=== PATIENT | male | born 1995 | race Caucasian/White ===

== ENCOUNTER 2017-08-12 22:50 | Emergency (ER) | payer OTHER ==
[~2017-08-12] VITALS: Ht 177.8 cm; Wt 68.0 kg
[2017-08-12 22:52] VITALS: TEMP 36.4; Ht 177.8 cm; Wt 68.0 kg
--- NOTE | 2017-08-12 23:51 | EMERGENCY ROOM VISIT NOTE ---
History Report prepared by Tata: Sasha Farooq Under the Supervision of: Dr. Shavon Angel D.O. First contact with patient: 23:01 Chief Complaint: WEAKNESS Stated Complaint: FAINT History of Present Illness The patient is a 21 year old male who presents to the Emergency Room with complaints of constant dizziness beginning three hours ago. The patient reports he smoked marijuana three hours ago. After he smoked, he reports he started to have a difficult time breathing and felt dizzy. He vomited one time after smoking. The patient denies any abdominal pain or diarrhea. Per friends, the patient does not seem to have a difficult time breathing. Per friends, the patient seemed normal earlier today before he smoked the marijuana. Per friends , the patient called them and said he was not feeling well and asked them to take him to the hospital. This is the patient's second time smoking marijuana. He reports he did not have a reaction like this the first time he smoked marijuana. He denies any alcohol or other drug use tonight. Source of History: patient, friend Onset: three hours ago Position: other (generalized) Quality: other (dizziness) Timing: constant Associated Symptoms: + SOB, + vomiting, No abdominal pain, No diarrhea Review of Systems See HPI for pertinent positives & negatives. A total of 10 systems reviewed and were otherwise negative. Past Medical & Surgical Medical Problems: (1) No Known Active Medical Problems Family History Patient reports no known family medical history. Social History Smoking Status: Current Every Day Smoker Drug Use: marijuana Housing Status: lives with roommate Occupation Status: student Current/Historical Medications No Active Prescriptions or Reported Meds Allergies Coded Allergies: No Known Allergies (Unverified , 08/12/17) Physical Exam Vital Signs Date Time Temp Pulse Resp B/P (MAP) Pulse Ox O2 Delivery O2 Flow Rate FiO2 08/13/17 00:19 68 18 110/62 100 Room Air 08/12/17 22:52 36.4 86 12 115/64 99 Room Air Physical Exam General: Patient appears lethargic. HEENT: Head - normocephalic and atraumatic Pupils are equal, round, and reactive to light. Extraocular eye muscles are intact, and sclera are anicteric. Nose - moist nasal mucosa without discharge. Mouth - moist buccal mucosa. Oropharynx is nonerythematous and there is no tonsillar exudate or edema noted. Neck: Supple; no JVD, nuchal rigidity, cervical lymphadenopathy. Heart: Regular rate and rhythm. There is a normal S1 and S2 with no murmurs, clicks, or gallops appreciated. Lungs: Clear to auscultation bilaterally with no wheezes, rales, or rhonchi. Abdomen: Soft, completely nontender, nondistended, with good bowel sounds. There are no palpable pulsatile masses or hepatosplenomegaly. There is no guarding, rigidity, or rebound noted. Extremities: No evidence of cyanosis, clubbing, or edema. There are easily palpable peripheral pulses. Skin: warm and dry with good turgor and no rashes. Medical Decision & Procedures ED Course 2329: Past medical records reviewed. The patient was evaluated in room B7. A complete history and physical exam was performed. The patient decided to rest for some time here in the emergency department. His vitals remained stable. 0020: On reassessment, the patient is more awake and would like to go home. 0039: Upon reevaluation, the patient is resting comfortably. I discussed findings and results with him. He verbalized agreement of the treatment plan. The patient was discharged home. Medical Decision The patient is a 21 year old male who presents to the Emergency Room with complaints of constant dizziness beginning three hours ago. Differential diagnosis includes marijuana abuse, anxiety, sleep deprivation. This is the second time that the patient has used marijuana. It seems that he did not have a favorable reaction from at this time. The patient became quite dizzy and did not feel well after using it. He was sleepy on my exam. After having some time to rest, the patient was feeling much better. I encouraged him to avoid using marijuana in the future. Medication Reconcilliation Current Medication List: was personally reviewed by me Blood Pressure Screening Patient's blood pressure: Normal blood pressure Impression Primary Impression: Marijuana abuse Scribe Attestation The scribe's documentation has been prepared under my direction and personally reviewed by me in its entirety. I confirm that the note above accurately reflects all work, treatment, procedures, and medical decision making performed by me. Departure Information Dispostion Home / Self-Care Prescriptions No Active Prescriptions or Reported Meds Referrals No Doctor, Assigned (PCP) Forms HOME CARE DOCUMENTATION FORM, IMPORTANT VISIT INFORMATION Patient Instructions ED Marijuana Abuse, My [facility] Additional Instructions Avoid using marijuana in the future Rest. [facility] if you have any continued symptoms
[2017-08-13 00:19] VITALS: BP 110/62; PULSE 68; O2SAT 100
== END 2017-08-13 00:42 | disposition home or self-care (01) ==
LOC: C.EDB 22:52
DX: F12.10 Cannabis abuse, uncomplicated (principal); F17.210 Nicotine dependence, cigarettes, uncomplicated